=== PATIENT | female | born 1980 | race Caucasian/White ===

== ENCOUNTER 2019-04-25 18:50 | Inpatient (IN) | payer SELFPAY ==
--- NOTE | 2019-04-25 19:59 | PCM.HP.OB ---
- Problem List (1) Advanced maternal age (AMA) in Status: Acute (2) History of spontaneous Status: Acute (3) Elective induction of labor planned Status: Acute History Date of Admission: 04/25/19 Final NISHA: 04/26/19 Gestational age: 39 Weeks and 6 Days History of this : This is a 38 year-old, G [3], P [0020], at 39w4d gestational age. Presents for elective IOL due to AMA. Allergies No Known Allergies Allergy (Verified 04/29/17 19:49) Home Medications: Home Medications Docosahexanoic Acid [ Dha] 1 tab PO DAILY 04/25/19 Smoking Status: Current every day smoker Alcohol: None Heart Tracin, moderate variability, accels, no decels, Category 1 FHT TOCO: None History Past Pregnancies: Past Pregnancies Delivery Date Name GA/Weeks Outcome Route Weight Gender Labor Length Anesthesia Delivery Location Provider FOB Labs: GBS negative 1hr GCT normal RPR nonreactive Rubella Immune HBsAG HIV non reactive O positive Expected Infant Delivery Method: Spontaneous Vaginal Review of Systems Constitutional: Denies: Chills, Fever, Weight Change HEENT: Denies: Head Aches, Sinus Congestion, Sinus Drainage Cardiovascular: Denies: Chest Pain, Palpitations Respiratory: Denies: Cough, Shortness of breath at rest, Sputum production Gastrointestinal: Denies: Abdominal Pain, Nausea, Vomiting Genitourinary: Denies: Dysuria Musculoskeletal: Denies: Joint Pain, Joint Tenderness Skin: Denies: Rash, Wounds Neurological: Denies: Numbness, Tingling, Focal weakness Psychiatric: Denies: Anxiety, Depression, Homicidal Ideations, Suicidal Ideations Hematologic/ Lymphatic: Denies: Easy Bruising, Easy Bleeding Physical Exam General: Alert, Oriented x3, No apparent distress HEENT: Atraumatic, Normocephalic. 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 A:AMA Elective IOL Category 1 FHT P: 1) Admission of IOL. Routine labs, IV 2) Reviewed IOL with Cytotec vaginally due to limited cervical dilation. Reviewed risks, benefits, and MOA. Patient consented to cytotec for cervical ripening. 3) Continuous EFM 4) Planning for epidural, may have upon request 5) notified and collaborative physician.
[2019-04-25 20:23] LABS: Absolute Lymphocyte Count 1.78 X10^3/uL (0.83-4.51); Absolute Neutrophil Count 9.6 X10^3/uL (2.0-7.7); Basophil# 0.04 X10^3/uL; Basophil% 0.3 % (0-1); Eosinophil# 0.19 X10^3/uL; Eosinophils% 1.5 % (0-5); Hematocrit 37.5 % (37-47); Hemoglobin 12.7 g/dL (12.0-15.0); Lymphocyte # 1.78 X10^3/ul (4.0); Lymphocyte % 13.8 % (19-41); Mean Corp Hgb Conc 33.9 g/dL (32-36); Mean Corpuscular Hgb 29.4 pg (27.0-32.0); Mean Corpuscular Volume 86.8 fL (81-99); Mean Platelet Vol. 9.8 fl (6.2-12.0); NRBC Flagged by Analyzer 0 % (0-5); Neutrophil # 9.55 X10^3/uL (2.7-7.7); Neutrophil % 73.8 % (47-70); Platelet Count 341 K/mm3 (150-450); RBC Distribution Width CV 13.4 % (11.6-14.6); RBC Distribution Width SD 42.3 fl (35.1-43.9); Red Blood Count 4.32 M/mm3 (4.2-5.4); White Blood Count 12.9 K/mm3 (4.4-11.0)
[2019-04-25 20:30] VITALS: BMI 28.5
--- NOTE | 2019-04-26 07:19 | PN_ITS ---
Progress Note Seen at bedside resting comfortably. Vaginal exam was performed she is 1/70%/- 3. Transcervical Barcenas catheter placed with 30 cc of saline. Patient tolerated well. Will start Pitocin. The heart rate remains a category 1 reactive.
[2019-04-26] MEDS: 0.9% Normal Saline 100 ML IV.SOLN. INTRA-UTER (07:49)
[2019-04-26] MEDS: Lactated Ringers 1,000 ML 50 ML IV ×4 (07:49→21:34)
[2019-04-26] MEDS: Oxytocin 30 units/NS 500 ml 30 UNITS/500 ML IV.SOLN IV (07:50)
--- NOTE | 2019-04-26 13:16 | PCM.PN.BLA ---
Progress Note Patient seen at bedside still comfortable. No epidural is in place at this time. Pitocin is running. heart rate remains a category 1. Vaginal exam performed an artificial rupture of membranes was performed clear fluid. Patient is approximately 4 to 5 cm 75% effaced and -3 station. Continue labor at this time. May have an epidural or nitrous if requested for pain management.
--- NOTE | 2019-04-26 18:05 | PCM.PN.BLA ---
Progress Note Patient comfortable with epidural. Is starting to feel her contractions a little bit again. heart tones are normal baseline with moderate variability and repetitive decelerations. Tocometer shows adequate contractions. Patient is on 20 milliunits of pit. We will continue expectant management for vaginal delivery.
[2019-04-26] MEDS: fentaNYL-bupivacaine (epidural) 100 ML BAG EPIDURAL (21:37)
--- NOTE | 2019-04-26 22:53 | NURSING ---
epidural replaced per ayaan FICTION WRITER to better control pt pain level. dr nye aware of pt complaints and will continue to monitor.
[2019-04-27] VITALS (20 sets, daily range): BP systolic 108–141; BP diastolic 59–83; PULSE 82–125; RESP 14–16; TEMP 36.1–36.9; O2SAT 95–100
[2019-04-27] MEDS: fentaNYL-bupivacaine (epidural) 100 ML BAG EPIDURAL ×2 (02:09→06:59)
[2019-04-27] MEDS: Lactated Ringers 1,000 ML 50 ML IV ×2 (02:49→06:06)
[2019-04-27] MEDS: Ondansetron 4 MG/2 ML Vial IV ×3 (06:12→15:25)
[2019-04-27] MEDS: 0.9% Saline Lock 10 ML Syringe IV ×3 (06:12→18:19)
--- NOTE | 2019-04-27 06:38 | PCM.PN.BLA ---
Progress Note FHTs remain reassuring, had pitocin break last night. Contrations adequate. Her cervix is now 4, 90, -2 with the head well applied. I discussed with the patient at this point her cervix is completely effaced and I would expect some active cervical change. If she has not entered the active stage of labor, would recommend a patient agrees with this plan.
[2019-04-27] MEDS: CHLORHEXIDINE GLUC 2% CLOTH 1 EACH TOWELETTE TOPICAL (11:26)
[2019-04-27] MEDS: Sodium Citrate/Citric Acid 30 ML UDC PO (11:38)
[2019-04-27] MEDS: Cefazolin 2 GM in 0.9% Normal Saline 100 ML IV (11:54)
[2019-04-27] MEDS: Oxytocin 30 units/NS 500 ml 30 UNITS/500 ML IV.SOLN 167 UNITS IV (12:12)
[2019-04-27] MEDS: Ketorolac 30 MG/ML Syringe IV ×2 (12:30→18:19)
--- NOTE | 2019-04-27 12:38 | OP.PCM_ITS ---
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 Patient was admitted for labor induction at 39 weeks and 6 days for cervical ripening. She underwent Cytotec followed by transcervical Barcenas with Pitocin. She had ruptured membranes for 24 hours with Pitocin with failure to progress. Patient was 4 cm. Decision made for primary section for failed induction. Description of Procedure: After informed consent was obtained the patient was taken the operating room. Ricci hart was then placed in the supine position. She was prepped and draped in the normal sterile fashion. Epidural anesthesia was found to be adequate. At this time a Pfannenstiel skin incision was made with a knife was carried down to the underlying layer of the fascia. The fascial incision was then extended laterally using curved Hobbs scissor. Tensions was then turned to the superior aspect of the fascial edge was grasped with 2 straight Ozzy clamps tented up and the rectus muscle dissected off sharply using curved Hobbs scissor. Attention was then turned to the inferior aspect where again Falconer clamps were placed in the rectus muscles were tented up and the fascia was dissected off sharply using the curved Hobbs scissor. Rectus muscles were then in the midline bluntly and peritoneum was entered bluntly. Gentle opposing traction was placed. At this time the vesicouterine peritoneum was identified. Scalpel was used to make a uterine incision in a low transverse fashion. The uterus was then entered bluntly gentle opposing traction was placed to extend this incision. Membranes were ruptured clear. 's head was brought to the uterine incision was delivered atraumatically. Delayed cord clamping performed. Cord was clamped and cut was handed to the waiting nursery team. The Placenta was removed from the uterus. The uterus was then removed from the a bdominal cavity. The uterus was cleared of all clots and debris using a lap. At this time the uterine incision was reapproximated using #1 Vicryl in a running locked fashion. Followed by second imbricating layer of #1 Vicryl. Hemostasis was appreciated. Posterior cul-de-sac was then cleared of all clots and debris. Uterus was placed back in the abdominal cavity. Gutters were cleared of all clots and debris. Uterine incision was reevaluated and noted to be of excellent hemostasis. Hudson placed. At this time the peritoneum and muscle were grasped with Kellys reapproximated using #2 Vicryl suture in a running fashion. Hudson was placed over the fascia. Bovie was used for any oozing. Fascia was then reapproximated using #1 Vicryl in a running fashion. Subcu layer was reapproximated with #2 0 plain gut suture in an interrupted fashion. Subcu layer was closed using 4-0 Monocryl in a Vasiliy needle in a subcu fashion. Dry sterile dressing was applied. Instrument lap needle count correct ?2. Anticipated normal postoperative course. Amniotic Membrane Rupture Type: Artificial Amniotic Fluid Description: Clear Placenta Disposition: [facility] Drain: Barcenas to straight drain Fluids Replaced: 1200 Cord Entanglement: None Cord Vessel Description: 3 Vessels Esitmated Blood Loss (ml): 700 (1 minute): 9 (5 minute): 9 Delayed cord clamping: Yes Pre-op Antibiotic Given: Ancef 2 grams IV x1 Pt instructed on risks of surgery: Bleeding, Anesthesia Risks, Infection, Injury to surrounding structure(s) including bowel and bladder Complications: None - Admit VTE Documentation VTE Present on Admission: Yes VTE Mechan Device Prophylaxis: SCD's VTE Pharm Prophylaxis ordered?: Yes
[2019-04-27] MEDS: Methylergonovine 0.2 MG/ML Ampul IM (14:20)
--- NOTE | 2019-04-27 15:43 | NURSING ---
Epidural catheter removed, blue tip intact.
[2019-04-27] MEDS: proMETHazine 25 MG/ML Syringe 12.5 MG IV (16:53)
[2019-04-27] MEDS: Lactated Ringers 1,000 ML 100 ML IV (18:17)
[2019-04-28] VITALS (10 sets, daily range): BP systolic 117–138; BP diastolic 61–79; PULSE 80–110; RESP 16–18; TEMP 36.7–37.1; O2SAT 95–100
[2019-04-28] MEDS: 0.9% Saline Lock 10 ML Syringe IV ×4 (00:18→18:24)
[2019-04-28] MEDS: Ketorolac 30 MG/ML Syringe IV ×4 (00:18→18:24)
[2019-04-28 04:18] LABS: Hematocrit 27.6 % (37-47); Hemoglobin 9.3 g/dL (12.0-15.0); Mean Corp Hgb Conc 33.7 g/dL (32-36); Mean Corpuscular Hgb 29.7 pg (27.0-32.0); Mean Corpuscular Volume 88.2 fL (81-99); Mean Platelet Vol. 9.5 fl (6.2-12.0); Platelet Count 288 K/mm3 (150-450); RBC Distribution Width CV 13.6 % (11.6-14.6); RBC Distribution Width SD 43.5 fl (35.1-43.9); Red Blood Count 3.13 M/mm3 (4.2-5.4); White Blood Count 20.8 K/mm3 (4.4-11.0)
[2019-04-28] MEDS: Lactated Ringers 1,000 ML 100 ML IV (04:25)
[2019-04-28] MEDS: Enoxaparin 40 MG/0.4 ML Syringe SC (06:21)
--- NOTE | 2019-04-28 08:03 | PCM.PN.OB ---
Patient Problems: Active and Suspected Problems Advanced maternal age (AMA) in (Acute) History of spontaneous (Acute) Elective induction of labor planned (Acute) Subjective: Patient seen at bedside, doing well. Patient reports good pain control. Denies any chest pain, shortness of breath, dizziness. Patient reports mild lochia. Patient reports is passing flatus. Tolerating regular diet. Denies any nausea or vomiting at this time. Breast-feeding going well. - Physical Exam General: Alert, Oriented x3 Abdomen: Soft, Non-Distended, - - fundus firm, incision dressing dry and intact Extremities: No Calf Tenderness Vital Signs Temp Pulse Resp BP Pulse Ox 98.4 F 94 16 117/62 98 04/28/19 04:01 04/28/19 06:15 04/28/19 06:15 04/28/19 04:01 04/28/19 06:15 Oxygen Delivery Method Room Air Weight: 75.296 kg Body Mass Index (BMI) 28.5 Intake and Output for Last 24 Hours 04/26/19 04/27/19 04/28/19 23:59 23:59 23:59 Intake Total 3044 / 3044 4644 / 4644 1696 / 1696 Output Total 600 / 600 1600 / 1600 400 / 400 Balance 2444 / 2444 3044 / 3044 1296 / 1296 Laboratory Tests Past 24 Hrs 04/28/19 04:15 WBC 20.8 H RBC 3.13 L Hgb 9.3 L Hct 27.6 L MCV 88.2 MCH 29.7 MCHC 33.7 RDW Std Deviation 43.5 RDW Coeff of Viki 13.6 Plt Count 288 MPV 9.5 Medical Necessity - Tobacco Use Smoking Status: Former smoker Assessment/Plan All Active Problems Advanced maternal age (AMA) in (Acute) History of spontaneous (Acute) Elective induction of labor planned (Acute) Postoperative day #1, doing well Routine care DC Barcenas Ambulation Pain management
--- NOTE | 2019-04-28 08:42 | NURSING ---
0800 dr Eason into see pt; micaela schneider dc'ed pt oob up to ambulate- pt gait steady denies feeling dizzy; convert to sl; pt set up for shower
[2019-04-29] MEDS: Ibuprofen 600 MG Tablet PO (02:27)
[2019-04-29 02:29] VITALS: BP 132/74; PULSE 83; RESP 16; TEMP 36.7
[2019-04-29] MEDS: Enoxaparin 40 MG/0.4 ML Syringe SC (06:12)
--- NOTE | 2019-04-29 07:29 | DCINST_ITS ---
Discharge Diet: No Restrictions Discharge Activity: Return to Normal Activity, May Not Drive - for 2 weeks, May not drive while taking narcotic pain medications., May Shower, May Take a Tub Bath - in 7 days. May resume sexual activity in: 4-6 weeks Lifting Restrictions: 20 pounds Additional Activity Instructions:: Nothing in the vagina for 4-6 weeks. You may return to work/school in 6 weeks. Call your doctor if your incision/area has: Continuous Slow Oozing, Sudden Increased Bleeding, Increased Pain/ Swelling, Increased Redness, Foul Smelling Discharge Call your doctor if you observe: Fever of 101 or Higher, Using more than one pad per hour - for 2 hours Suture Line Care: Avoid Pulling/Pushing, Avoid Pinching/Bending Cleanse incision/area with: Keep Dressing Clean & Dry Additional Instructions: If you experience any of the following, contact your healthcare provider. * Bleeding that soaks a pad every hour for 2 hours * Fever 100.4 or higher * Unrelieved incision or abdominal pain * Swelling, redness, discharge or bleeding from your incision or episiotomy site * Your incision begins to separate * Problems urinating (including inability to urinate or burning while urinating). * Visual changes * Severe headache * Flu-like symptoms * Pain or redness in one of both of your breasts * Pain, warmth, tenderness or swelling in your legs, especially the calf area * Frequent nausea and vomiting * Symptoms of depression or anxiety alternate 200 mg ibuprofen 2-3 tablets every 6 hrs as needed for pain with acetaminphen 500 mg tablets- 2 of them every 6 hrs as needed. If you experience any of the following, call 911 or go to the nearest Emergency Room. * Chest pain * Problems breathing * Seizure activity * Partial or complete paralysis of a body part, slurred speech, weakness or drooping of the face, or a sudden inability to walk or hold your balance * Allergies/Adverse Reactions: Allergies No Known Allergies Allergy (Verified 04/29/17 19:49) Medications to take at Discharge Docosahexanoic Acid [ Dha] 1 tab PO DAILY 04/25/19 Follow-Up: Call to make an appointment with your doctor for an incision check in 1-2 weeks. You will also need a 6 week post- follow up appointment. Test results from this visit will be discussed in further detail at your follow- up appointment, if applicable. Please Follow Up With: Barby Torres MD - Call to make an appointment for an incision check in 1-2 [phone] When: You will need a post check in 6 weeks. Primary Care Physician: Care Physician,No Primary [Primary Care Provider] -
--- NOTE | 2019-04-29 07:30 | PCM.PN.OB ---
Patient Problems: Active and Suspected Problems Advanced maternal age (AMA) in (Acute) History of spontaneous (Acute) Elective induction of labor planned (Acute) Subjective: pain well controlled, average lochia, + BM, heraclio. regular diet - Physical Exam General: Alert, Cooperative, No apparent distress Abdomen: Soft, Distended - mildly, softly, Tender - appropriately Skin: Incision - bandage clean, dry and intat Vital Signs Temp Pulse Resp BP Pulse Ox 98.0 F 83 16 132/74 H 96 04/29/19 02:29 04/29/19 02:29 04/29/19 02:29 04/29/19 02:04/28/19 10:00 Oxygen Delivery Method Room Air Weight: 75.296 kg Body Mass Index (BMI) 28.5 Intake and Output for Last 24 Hours 04/27/19 04/28/19 04/29/19 23:59 23:59 23:59 Intake Total 4644 / 4644 1844 / 1844 Output Total 1600 / 1600 1000 / 1000 Balance 3044 / 3044 844 / 844 Medical Necessity - Tobacco Use Smoking Status: Former smoker Assessment/Plan All Active Problems Advanced maternal age (AMA) in (Acute) History of spontaneous (Acute) Elective induction of labor planned (Acute) Postoperative day #2 Status post primary section. Patient is doing well desires discharge home. Declines narcotic prescription. Routine instructions and prescriptions otherwise. is breast-feeding and doing well.
[2019-04-29 07:57] VITALS: BP 136/79; PULSE 91; RESP 14; TEMP 36.7
--- NOTE | 2019-04-29 08:58 | PCM.DC.BLA ---
Discharge Summary Date of Admission: 04/25/19 Date of Discharge: 04/29/19 Summary: patient was admitted [facility] on 04/25/2019 for an induction of labor at 40 weeks gestation due to AMA. Patient underwent cervical ripening with Cytotec followed by cervical Barcenas placement with Pitocin. Patient was a failed induction after 24 hours rupture membranes with Pitocin. Patient underwent a primary section for failed induction. was uncomplicated infant was macrosomic at 10 pounds 1 ounce. Hematocrit and hemoglobin were stable postoperative and patient was discharged home on postoperative day #2 in stable condition. Patient Problems: Active and Suspected Problems Advanced maternal age (AMA) in (Acute) History of spontaneous (Acute) Elective induction of labor planned (Acute) - Physical Exam Vital Signs Temp Pulse Resp BP Pulse Ox 98.1 F 91 14 136/79 H 96 04/29/19 07:57 04/29/19 07:57 04/29/19 07:57 04/29/19 07:57 04/28/19 10:00 Oxygen Delivery Method Room Air Weight: 75.296 kg Body Mass Index (BMI) 28.5 Intake and Output for Last 24 Hours 04/27/19 04/28/19 04/29/19 23:59 23:59 23:59 Intake Total 4644 / 4644 1844 / 1844 Output Total 1600 / 1600 1000 / 1000 Balance 3044 / 3044 844 / 844
== END 2019-04-29 08:50 | disposition home or self-care (01) | DRG 788 ==
PROVIDERS: Admitting Provider Obstetrics & Gynecology; Referring Provider Obstetrics & Gynecology; Visit Provider Obstetrics & Gynecology
DX: O76 Abnormality in fetal heart rate and rhythm complicating labor and delivery (principal); O61.9 Failed induction of labor, unspecified; O09.523 Supervision of elderly multigravida, third trimester; O36.63X0 Maternal care for excessive fetal growth, third trimester, not applicable or unspecified; O62.2 Other uterine inertia; Z3A.40 40 weeks gestation of pregnancy; Z37.0 Single live birth; Z87.59 Personal history of other complications of pregnancy, childbirth and the puerperium; Z87.891 Personal history of nicotine dependence
CPT/HCPCS: 59025; 59050; 85025; 85027; 86850; 86900; 99218; J7120; A4216; G0378; J2405